=== PATIENT | female | born 1955 | race Caucasian/White ===

== ENCOUNTER 2016-11-08 19:21 | Emergency (ER) | payer OTHER ==
[2016-11-08 20:17] LABS: BASOPHIL 0.2 % (0-2); BILIRUBIN NEGATIVE (NEGATIVE); BLOOD 1+ Ery/uL (NEGATIVE); CLARITY CLEAR (CLEAR); COLOR STRAW (YELLOW); EOSINOPHIL 0.1 % (0-5); GLUCOSE (U) NORMAL (NORMAL); HCT 43.2 % (37.0-47.0); HGB 14.5 g/dl (12.5-16.0); KETONE (U) NEGATIVE (NEGATIVE); LEUKOCYTES NEGATIVE Leu/uL (NEGATIVE); LYMPHOCYTE 22.3 % (15-48); MCH 30.1 pg (25.0-31.0); MCHC 33.6 g/dL (32.0-36.0); MCV 89.8 fL (78.0-100.0); MONOCYTE 10.4 % (0-12); MPV 10.3 fL (6.0-9.5); NITRITE NEGATIVE (NEGATIVE); PLT 247 K/uL (150-400); PROTEIN NEGATIVE (NEGATIVE); RBC 4.81 M/uL (4.20-5.40); RDW 12.9 % (11.5-14.0); UROBILINOGEN 0.2 mg/dL (0.2-1.0); WBC 8.8 K/uL (4.0-10.5)
[2016-11-08 20:24] LABS: BACTERIA TRACE
[2016-11-08 20:30] LABS: ALBUMIN 4.7 g/dL (3.4-4.8); BILIRUBIN - TOTAL 0.2 mg/dL (0.1-1.0); CREATININE 0.8 mg/dL (0.5-1.0); GLOBULIN (CALCULATION) 2.8 g/dL (2.2-4.2); POTASSIUM 3.9 mmol/L (3.5-5.1); TOTAL PROTEIN 7.5 g/dL (6.4-8.3)
== END 2016-11-08 22:40 | disposition home or self-care (01) ==
LOC: FER 19:21
PROVIDERS: Emergency Medicine Emergency Medical Services
DX: J01.90 Acute sinusitis, unspecified (principal); I10 Essential (primary) hypertension; R42 Dizziness and giddiness; R82.90 Unspecified abnormal findings in urine; E86.9 Volume depletion, unspecified; F41.9 Anxiety disorder, unspecified; F32.9 Major depressive disorder, single episode, unspecified; Z87.440 Personal history of urinary (tract) infections; Z79.82 Long term (current) use of aspirin; Z79.899 Other long term (current) drug therapy
CPT/HCPCS: 36415; 70450; 80053; 81001; 85025; 85651; 87040; 87088; 87804; 87899; J1100; J1885; J2270; J2405; J3360

== ENCOUNTER 2021-03-06 12:40 | Emergency (ER) | payer MEDICARE, OTHER ==
[2021-03-06 14:27] LABS: BASOPHIL 1.1 % (0-2); EOSINOPHIL 2.4 % (0-7); HCT 43.5 % (37.0-47.0); LYMPHOCYTE 30.7 % (15-48); MCH 30.9 pg (25.0-31.0); MCHC 32.2 g/dL (32.0-36.0); MONOCYTE 9.9 % (0-12); MPV 10.2 fL (6.0-9.5); NEUTROPHIL 55.5 % (41-80); NRBC 0; PLT 253 K/uL (150-400); RBC 4.53 M/uL (4.20-5.40); RDW 13.2 % (11.5-14.0); WBC 7.9 K/uL (4.0-10.5)
[2021-03-06 14:30] LABS: BILIRUBIN NEGATIVE (NEGATIVE); BLOOD NEGATIVE Ery/uL (NEGATIVE); CLARITY CLEAR (CLEAR); COLOR YELLOW (YELLOW); GLUCOSE (U) NORMAL (NORMAL); LEUKOCYTES 1+ Leu/uL (NEGATIVE); NITRITE NEGATIVE (NEGATIVE); PROTEIN NEGATIVE (NEGATIVE); UROBILINOGEN 0.2 mg/dL (0.2-1.0)
[2021-03-06 14:44] LABS: ALBUMIN 3.9 g/dL (3.4-5.0); BILIRUBIN - TOTAL 0.3 mg/dL (0.2-1.0); BUN/CREAT RATIO (CALC) 20.8 RATIO; CREATININE 1.2 mg/dL (0.51-0.95); GLOBULIN (CALCULATION) 3.2 g/dL; MAGNESIUM 2.2 mg/dL (1.8-2.4); POTASSIUM 4.6 mmol/L (3.5-5.1); TOTAL PROTEIN 7.1 g/dL (6.4-8.2)
[2021-03-06 14:53] LABS: PRO-BNP 42 pg/mL (<125)
[2021-03-06 14:58] LABS: BACTERIA TRACE; URINARY RBC RARE
[2021-03-06] MEDS ORDERED: NORCO 5-325 TA1 EACH PO (17:23)
== END 2021-03-06 17:28 | disposition home or self-care (01) ==
LOC: FER 12:40
PROVIDERS: Emergency Medicine
DX: S06.0X0A Concussion without loss of consciousness, initial encounter (principal); I95.89 Other hypotension; I10 Essential (primary) hypertension; Z88.1 Allergy status to other antibiotic agents; W01.10XA Fall on same level from slipping, tripping and stumbling with subsequent striking against unspecified object, initial encounter
CPT/HCPCS: 36415; 70450; 71046; 80053; 81001; 83735; 83880; 84484; 85025; 93005